=== PATIENT | male | born 1985 | race Caucasian/White ===

== ENCOUNTER 2016-11-02 04:31 | Emergency (ER) | payer BC, OTHER ==
[~2016-11-02] VITALS: Ht 182.9 cm; Wt 74.3 kg
[~2016-11-02 04:31] MED LIST: CYCL10TA6 PO; IBUP-1050 PO
[2016-11-02 04:34] VITALS: TEMP 37; Ht 182.9 cm; Wt 74.3 kg
[2016-11-02] MEDS ORDERED: DEXAMETHASONE SOD INJ 10 MG/ML VIAL IV ONE (04:45)
[2016-11-02] MEDS ORDERED: SODIUM CHLORIDE 0.9% 1000ML 1,000 ML IV STA ×2 (04:45)
[2016-11-02] MEDS ORDERED: KETOROLAC TROMETHAMINE 30 MG/ML VIAL IV STA (04:45)
[2016-11-02] MEDS ORDERED: ALBUT/IPRATROP 3MG/0.5MG NEB 3 ML VIAL INH STA (04:45)
[2016-11-02 05:22] LABS: BASO % 0.6 %; BASO ABS # 0.03 K/uL (0-0.2); COMPLETE YES; EOS % 2.6 %; HEMATOCRIT 40.8 % (42-52); LYMPH % 22.4 %; MEAN CELL VOLUME 84.3 fL (80-100); MEAN CORPUSCULAR HEMOGLOBIN 29.5 pg (25-34); MEAN PLATELET VOLUME 9.6 fL (7.4-10.4); NEUT % 63.4 %; PLATELET COUNT 206 K/uL (130-400); RED BLOOD COUNT 4.84 M/uL (4.7-6.1); WHITE BLOOD COUNT 4.91 K/uL (4.8-10.8)
[2016-11-02 05:41] LABS: BUN/CREATININE RATIO 10.5 (10-20); CALCIUM 8.4 mg/dl (8.5-10.1); CREATININE 0.9 mg/dl (0.60-1.40); POTASSIUM 4.1 mmol/L (3.5-5.1)
[2016-11-02 05:51] VITALS: PULSE 89; O2SAT 98
[2016-11-02] MEDS ORDERED: ALBUTEROL HFA 8 GM INHALER INH STA (05:54)
--- NOTE | 2016-11-02 05:54 | EMERGENCY ROOM VISIT NOTE ---
History First contact with patient: 04:37 Chief Complaint: FLU LIKE SX Stated Complaint: CHEST PAIN,FEVER,SOB History of Present Illness The patient is a 31 year old male who presents to the Emergency Room with complaints of fever, chills, cough, congestion, chest pain with coughing for the past 2 days. Patient smokes. He's had pneumonia and bronchitis before. Patient denies headache, neck status, sore throat, abdominal pain, vomiting, diarrhea. No recent travel. No sick contacts. Review of Systems See HPI for pertinent positives & negatives. A total of 10 systems reviewed and were otherwise negative. Past Medical/Surgical History Surgical Problems: (1) H/O spinal fusion Kidney stones Social History Smoking Status: Current Every Day Smoker Alcohol Use: occasionally Drug Use: none Marital Status: single Occupation Status: unemployed Current/Historical Medications Scheduled Prednisone (Prednisone), 50 MG PO DAILY Physical Exam Vital Signs Date Time Temp Pulse Resp B/P (MAP) Pulse Ox O2 Delivery O2 Flow Rate FiO2 11/02/16 05:16 91 22 97 11/02/16 05:09 93 11/02/16 05:01 97 22 119/65 98 11/02/16 04:59 124/73 11/02/16 04:34 37.0 107 20 146/77 99 Room Air Physical Exam VITALS: Vitals are noted on the nurse's note and reviewed by myself. Vital signs stable. GENERAL: White male, in no acute distress, nondiaphoretic, well-developed well- nourished. SKIN: The skin was without rashes, erythema, edema, or bruising. There is no tenting of the skin. Capillary reflex less than 2 seconds. HEAD: Normocephalic atraumatic. EARS: External auditory canals clear, tympanic membranes pearly pritchett without erythema or effusion bilaterally. EYES: Pupils equal round and reactive to light and accommodation. Conjunctivae without injection, sclerae without icterus. Extraocular movements intact. NOSE: Patent, turbinates without inflammation or discharge. No sinus tenderness. MOUTH: Mucous membranes moist. Pharynx without erythema or exudate. Uvula midline. Airway patent. Tongue does not deviate. NECK: Supple without nuchal rigidity. No lymphadenopathy. No thyromegaly. Cervical spine is nontender. No JVD. No meningeal signs HEART: Mildly tachycardic rate and rhythm without murmurs gallops or rubs. LUNGS: Mild diffuse end expiratory wheezes, without rales or rhonchi. No dullness to percussion. No retractions or accessory muscle use. ABDOMEN: Positive bowel sounds x 4. Normal tympanic percussion. Soft, nontender, without masses or organomegaly. Stanford sign negative. No guarding or rebound tenderness. MUSCULOSKELETAL: No muscle atrophy, erythema, or edema noted. NEURO: Patient was alert and oriented to person place and time. Normal sensation to light and sharp touch. No focal neurological deficits. Medical Decision & Procedures Laboratory Results 11/02/16 05:05 Red Blood Count 4.84, Mean Corpuscular Volume 84.3, Mean Corpuscular Hemoglobin 29.5, Mean Corpuscular Hemoglobin Concent 35.0, Mean Platelet Volume 9.6, Neutrophils (%) (Auto) 63.4, Lymphocytes (%) (Auto) 22.4, Monocytes (%) (Auto) 11.0, Eosinophils (%) (Auto) 2.6, Basophils (%) (Auto) 0.6, Neutrophils # (Auto ) 3.11, Lymphocytes # (Auto) 1.10, Monocytes # (Auto) 0.54, Eosinophils # (Auto ) 0.13, Basophils # (Auto) 0.03 11/02/16 05:05 Test 11/02/16 05:05 11/02/16 05:12 White Blood Count 4.91 K/uL (4.8-10.8) Red Blood Count 4.84 M/uL (4.7-6.1) Hemoglobin 14.3 g/dL (14.0-18.0) Hematocrit 40.8 % (42-52) Mean Corpuscular Volume 84.3 fL (80-100) Mean Corpuscular Hemoglobin 29.5 pg (25-34) Mean Corpuscular Hemoglobin Concent 35.0 g/dl (32-36) Platelet Count 206 K/uL (130-400) Mean Platelet Volume 9.6 fL (7.4-10.4) Neutrophils (%) (Auto) 63.4 % Lymphocytes (%) (Auto) 22.4 % Monocytes (%) (Auto) 11.0 % Eosinophils (%) (Auto) 2.6 % Basophils (%) (Auto) 0.6 % Neutrophils # (Auto) 3.11 K/uL (1.4-6.5) Lymphocytes # (Auto) 1.10 K/uL (1.2-3.4) Monocytes # (Auto) 0.54 K/uL (0.11-0.59) Eosinophils # (Auto) 0.13 K/uL (0-0.5) Basophils # (Auto) 0.03 K/uL (0-0.2) RDW Standard Deviation 41.4 fL (36.4-46.3) RDW Coefficient of Variation 13.4 % (11.5-14.5) Immature Granulocyte % (Auto) 0.0 % Immature Granulocyte # (Auto) 0.00 K/uL (0.00-0.02) Anion Gap 6.0 mmol/L (3-11) Est Creatinine Clear Calc Drug Dose 127.3 ml/min Estimated GFR () 133.3 Estimated GFR (Non- 115.0 BUN/Creatinine Ratio 10.5 (10-20) Calcium Level 8.4 mg/dl (8.5-10.1) Total Bilirubin 0.4 mg/dl (0.2-1) Direct Bilirubin 0.1 mg/dl (0-0.2) Aspartate Amino Transf (AST/SGOT) 16 U/L (15-37) Alanine Aminotransferase (ALT/SGPT) 30 U/L (12-78) Alkaline Phosphatase 92 U/L (45-117) Total Protein 6.9 gm/dl (6.4-8.2) Albumin 3.8 gm/dl (3.4-5.0) Lipase 180 U/L (73-393) Bedside Troponin I < 0.030 ng/ml (0-0.045) Medications Administered Medications (Trade) Dose Ordered Sig/Mich Route Start Time Stop Time Status Last Admin Dose Admin Albuterol/ Ipratropium (Duoneb) 3 ml NOW STAT INH 11/02/16 04:45 11/02/16 04:47 DC 11/02/16 05:25 3 ML Dexamethasone Sodium Phosphate (Decadron Inj) 10 mg NOW ONCE IV 11/02/16 04:45 11/02/16 04:47 DC 11/02/16 05:23 10 MG Ketorolac Tromethamine (Toradol Inj) 30 mg NOW STAT IV 11/02/16 04:45 11/02/16 04:47 DC 11/02/16 05:22 30 MG Sodium Chloride 1,000 ml @ 999 mls/hr Q1H1M STAT IV 11/02/16 04:45 11/02/16 05:45 DC 11/02/16 05:21 999 MLS/HR Sodium Chloride 1,000 ml @ 125 mls/hr Q8H STAT IV 11/02/16 04:45 11/02/16 12:44 11/02/16 05:21 125 MLS/HR ED Course Prior records/ancillary studies reviewed. Triage Nursing notes reviewed. Additional history obtained from family The patient's history was concerning for cold symptoms with chest pain. Differential diagnosis: Etiologies such as bronchitis, cardiac ischemia, aortic dissection, pulmonary embolism, pneumonia, pneumothorax, musculoskeletal, infections, pericarditis, myocarditis, esophageal rupture, gastrointestinal, as well as others were entertained. Physical examination: As above. ER treatment provided: IV fluids, nebulizer, Toradol, Decadron On reassessment the patient felt better. Diagnostic interpretation by me: The electrocardiogram was negative for pathologic change. Normal sinus, rightward axis, normal intervals, Q waves in the inferior leads, no acute ST-T wave changes, impression normal sinus rhythm interpreted by myself. EKG compared to prior EKG with no acute changes noted. The labs revealed negative troponin, stable H&H Imaging studies: Chest x-ray with no acute consolidation, pneumothorax or free air per my interpretation Exam and history seem consistent with bronchitis. Patient does not have an acute abdomen on exam. Patient is well-appearing. Patient is neurovascularly and neurologically intact. Patient is tolerating fluids. Patient is ambulating without difficulties. Patient was advised to follow-up with family care in a few days or here in the ER sooner for chest pain, difficulty breathing , abdominal pain, fevers, worsening signs or symptoms or as needed. By the evaluation outlined above emergent etiologies such as cardiac ischemia, aortic dissection, pulmonary embolism, pneumonia, pneumothorax, infections, pericarditis, myocarditis, gastrointestinal, as well as others were deemed relatively unlikely. The pt informed about the findings as listed above. All questions were answered and pleased with the treatment. Return instructions were outlined and the patient was discharged in stable condition. Outpatient prescription management: Prednisone Referral: The patient was referred back to primary care physician for follow-up in 2 to 3 days for a recheck of the current condition. Case reviewed with my attending Medical Decision As above Medication Reconcilliation Current Medication List: was personally reviewed by me Blood Pressure Screening Patient's blood pressure: Elevated blood pressure Blood pressure disposition: Elevated BP felt to be situational Impression Primary Impression: Acute bronchitis Departure Information Dispostion Home / Self-Care Condition GOOD Prescriptions Prednisone (Prednisone) 50 Mg Tab 50 MG PO DAILY for 4 Days, #4 TAB Prov: Haley Ordonez .SONALI 11/02/16 Referrals No Doctor, Assigned (PCP) Patient Instructions My [facility] Additional Instructions Albuterol Inhaler: Take 2 puffs four times daily for five days, then as needed. Prednisone 50mg: Once daily until the prescription is finished. It is best to take this earlier in the day as some patients note occasional difficulty falling asleep when taken in the late evening. Acetaminophen(Tylenol) may be used for fever or pain. Use 1000mg every six hours as needed. Avoid using more than 3000mg in a 24 hour period. (AND/OR) Ibuprofen(Motrin, Advil) may be used for fever or pain. Use 600mg every six hours as needed. Take with food. Avoid using more than 2400mg in a 24 hour period. Do not use 2400mg per day for more than three consecutive days without physician direction. Prolonged inappropriate use can lead to stomach upset or ulcers. Afrin nasal spray: 2-3 sprays to each nostril twice daily as needed for congestion. Do not use for more than 3-4 days because it can lead to worsening rebound congestion. Pseudoephedrine(Sudaphed): 30-60mg every 6 hours as needed for nasal congestion. Do not take this with other stimulant products or supplements. Rest and drink plenty of fluids. Controlling your fever with Tylenol and Ibuprofen as above will make you feel better. Wash your hands after nose blowing, sneezing, or coughing. Most germs are spread through contact, therefore improper hygiene may result in your close contacts and loved ones becoming ill just like you. Continue current medications. Return to the ER for severe headache, neck stiffness, chest pain, difficulty breathing, fevers, vomiting, worsening of your condition, or as needed. Follow up with your primary physician this week for a recheck of your current condition. Problem Qualifiers Primary Impression: Acute bronchitis Bronchitis organism: unspecified organism Qualified Codes: J20.9 - Acute bronchitis, unspecified
[2016-11-02] MEDS ORDERED: PRED50TA PO (05:56)
[2016-11-02 06:01] VITALS: BP 120/68
--- NOTE | 2016-11-02 07:33 | DIAGNOSTIC IMAGING REPORT ---
CHEST ONE VIEW PORTABLE CLINICAL HISTORY: Chest pain. COMPARISON STUDY: Chest radiograph January 01, 2013. FINDINGS: Lung volumes are normal. No pneumothorax or pleural effusion is present. There is no consolidation to suggest pneumonia. Cardiomediastinal silhouette is normal. Pulmonary vascularity is normal. IMPRESSION: No acute cardiopulmonary findings. Electronically signed by: Mihcele Christianson M.D. 11/02/2016 7:32 AM Dictated Date/Time: 11/02/2016 7:31 AM
== END 2016-11-02 06:10 | disposition home or self-care (01) ==
LOC: C.EDB 04:33
DX: J20.9 Acute bronchitis, unspecified (principal); F17.210 Nicotine dependence, cigarettes, uncomplicated; Z87.01 Personal history of pneumonia (recurrent); Z98.1 Arthrodesis status; Z87.442 Personal history of urinary calculi

== ENCOUNTER 2017-01-08 12:51 | Emergency (ER) | payer OTHER ==
[~2017-01-08] VITALS: Ht 182.9 cm; Wt 77.7 kg
[2017-01-08 13:07] VITALS: TEMP 36.6; Ht 182.9 cm; Wt 77.7 kg
[2017-01-08] MEDS ORDERED: HYDR-5688 PO (13:32)
[2017-01-08 13:38] VITALS: BP 128/72; PULSE 76; O2SAT 97
--- NOTE | 2017-01-09 16:43 | EMERGENCY ROOM VISIT NOTE ---
ED Visit Note First contact with patient: 13:13 Chief Complaint: Right sided dental and jaw pain. History of Present Illness: Mr. garrett is a 31-year-old white male who ambulates into the ED accompanied by female friend complaining of right sided mandibular dental and jaw pain. Patient reports 3-4 days ago he broke tooth #30. Since that time he has been having increasing pain in the right mandible in the area of tooth 30 and the jaw. He describes his pain as a deep achy sensation. He rates his discomfort 5 /10. His pain is nonradiating. His pain worsens with palpation of the broken tooth, chewing and opening closing the mandible. He has not identified any alleviating factors related to the pain. He reports he has used over-the- counter medication but has had no relief of his discomfort. He does report he has not been able sleep the last 2 nights because of the severe pain. He denies any associated symptoms including fevers, chills, sweats, skin eruptions, skin color changes, facial swelling, sore throat, voice changes, painful talking, drooling, inability to swallow, neck pain/stiffness, chest pain , shortness of breath, abdominal pain, nausea/vomiting. Review of Systems: As noted above in history of present illness. 8 body systems were reviewed and found to be negative as noted above. Past Medical History: Bronchitis, pneumonia, gastric ulcers, kidney stones, status post spinal fusion. Current Medications: Patient denies. Allergies to Medications: Patient denies. Social History: Patient is currently employed; he feels safe in his home environment; he denies tobacco and alcohol use. Physical Examination: Vital Signs: Date Time Temp Pulse Resp B/P (MAP) Pulse Ox O2 Delivery O2 Flow Rate FiO2 01/08/17 13:38 76 128/72 97 01/08/17 13:07 36.6 76 17 133/82 98 Room Air GENERAL: 31-year-old male in mild to moderate distress due to pain, nontoxic- appearing, afebrile and hemodynamically stable. NEUROLOGICAL: Awake, alert and oriented to person, place and time. Answering questions appropriately and following commands. Normal gait. Good hand eye coordination. No focal motor sensory deficits. SKIN: Warm, dry and pink. No soft tissue eruptions or trauma noted. HEENT: Atraumatic and normocephalic. No facial swelling or erythema. Oral cavity moist and pink. Airway patent. Pharynx is nonerythematous or edematous. Speech normal. Tooth #30 shows a fractured tooth with the proximal lateral quarter of the tooth missing. There does seem to be exposure of the root. The tooth is tender to palpation. There is no local erythema or edema. I do not palpate any abscesses. No lymphadenopathy. ED Course: Patient is assessed as noted above. Patient's medication list was reviewed. Patient was educated about today's findings and instructed on his treatment plan ; he verbalized understanding and agreement with this plan. Clinical Impression: Dental pain. Disposition: Patient discharged home in stable condition accompanied by female friends; prior to departure he was reassessed and subjectively reported he was feeling the same. Plan: Comfort measures including a sliding pain medication scale of ibuprofen, acetaminophen and [place] were discussed with the patient; he was given appropriate narcotic precautions and his name was checked in the state database and no red flags were noted. Patient did inform me that he was using Anbesol as well as clove oil for ongoing pain and I tell him to continue this regimen. Patient is encouraged to cover the tooth with dental wax. Patient is encouraged to keep his mouth clean with flossing, brushing teeth and gargling with salt water 4-5 times a day. Patient was encouraged to follow-up with dentistry as soon as practical. Patient was educated on signs of dental infections. Patient is encouraged return ED for any signs of dental infection, uncontrolled pain or any new/concerning symptoms.
== END 2017-01-08 13:35 | disposition home or self-care (01) ==
LOC: C.EDB 12:52 → C.EDD 13:35
DX: K08.89 Other specified disorders of teeth and supporting structures (principal); S02.5XXA Fracture of tooth (traumatic), initial encounter for closed fracture; X58.XXXA Exposure to other specified factors, initial encounter